=== PATIENT | male | born 1995 | race American Indian/Alaskan Native ===

== ENCOUNTER 2017-02-18 19:20 | Emergency (ER) | payer OTHER ==
[2017-02-18 20:23] VITALS: BP 144/80
--- NOTE | 2017-02-18 21:08 | XRay Report ---
FINAL REPORT PROCEDURE: XR KNEE 3V LT TECHNIQUE: LEFT knee radiographs, AP, lateral and sunrise views. CPT 71547 HISTORY: Left knee popped out COMPARISON: No prior studies are available for comparison. FINDINGS: Fracture (s) and/or Dislocation(s): None . Alignment: Normal . Joint space(s): Mild degree joint effusion is noted. Soft tissues: Normal . Bone mineralization: Normal . Foreign bodies: None . IMPRESSION: No acute fracture. Mild joint effusion.
[2017-02-18] MEDS ORDERED: MOTRIN PO ONE (21:43)
--- NOTE | 2017-02-19 00:51 | Emergency Department Report ---
Entered by WESLY RUSHING, acting as scribe for NEGRITA WILDE NP. ED Lower Extremity HPI - General Chief Complaint: Extremity Injury, Lower Stated Complaint: L KNEE PAIN Time Seen by Provider: 02/18/17 20:47 Source: patient Mode of arrival: Ambulatory Limitations: No Limitations - History of Present Illness Initial Comments: 21 y/o male with no significant PMHx c/o left knee pain that began today. Patient states that he was playing basketball and was trying to go up for a block, and his left knee subsequently popped out of place. Notes he popped his left knee back in place. Rates pain a 10/10 in severity. Denies numbness, tingling, LOC, head trauma/injury, paresthesias, fever, CP, SOB, head trauma, chills, nausea, and vomiting. Alleviated by nothing and aggravated by nothing. Applied ice with no relief. Patient reports not putting weight on left knee since the injury, because he is "afraid to". NKDA. LOPEZ Complaint: knee injury (left knee) -: This afternoon Injury: Knee: Left Type of Injury: other (dislocation) Place: other (basketball gym) Severity: severe Severity scale (0 -10): 10 Improves With: nothing (applied ice with no relief) Worsens With: nothing Context: other (playing basketball and jumped up for a block when left knee popped out of place) Associated Symptoms: snap/pop sensation (left knee), swelling, able to partially bear weight, ambulatory. denies: numbness, tingling - Related Data Previous Rx's Medication Instructions Recorded Last Taken Type Cyclobenzaprine [Flexeril 10 MG 10 mg PO TID PRN #15 tablet 09/26/15 Unknown Rx TAB] Ibuprofen [Motrin 800 MG tab] 800 mg PO Q8HR PRN #30 tablet 09/26/15 Unknown Rx Ibuprofen [Motrin 600 MG tab] 600 mg PO Q8H PRN #14 tablet 02/18/17 Unknown Rx Allergies Allergy/AdvReac Type Severity Reaction Status Date / Time No Known Allergies Allergy Unverified 09/26/15 02:31 ED Review of Systems Comment: All other systems reviewed and negative Constitutional: no symptoms reported. denies: chills, fever Eyes: denies: eye pain, eye discharge, vision change ENT: denies: ear pain, throat pain Respiratory: denies: cough, shortness of breath, wheezing Cardiovascular: denies: chest pain, palpitations Endocrine: no symptoms reported Gastrointestinal: denies: abdominal pain, nausea, vomiting, diarrhea Genitourinary: denies: urgency, dysuria Musculoskeletal: arthralgia (left knee pain). denies: back pain, joint swelling Skin: denies: rash, lesions Neurological: denies: headache, weakness, numbness, paresthesias, other ( tingling) Psychiatric: denies: anxiety, depression Hematological/Lymphatic: denies: easy bleeding, easy bruising ED Past Medical Hx - Past Medical History Previous Medical History?: No - Social History Smoking Status: Unknown if ever smoked - Medications Home Medications: Home Medications Medication Instructions Recorded Confirmed Last Taken Type Cyclobenzaprine [Flexeril 10 MG 10 mg PO TID PRN #15 tablet 09/26/15 Unknown Rx TAB] Ibuprofen [Motrin 800 MG tab] 800 mg PO Q8HR PRN #30 tablet 09/26/15 Unknown Rx Ibuprofen [Motrin 600 MG tab] 600 mg PO Q8H PRN #14 tablet 02/18/17 Unknown Rx ED Physical Exam - General Limitations: No Limitations General appearance: alert, in no apparent distress - Head Head exam: Present: atraumatic, normocephalic - Eye Eye exam: Present: normal appearance, PERRL, EOMI Pupils: Present: normal accommodation - ENT ENT exam: Present: normal exam, mucous membranes moist - Neck Neck exam: Present: normal inspection, full ROM. Absent: tenderness, lymphadenopathy - Respiratory Respiratory exam: Present: normal lung sounds bilaterally. Absent: respiratory distress, wheezes, rales, rhonchi, stridor, accessory muscle use, decreased breath sounds - Cardiovascular Cardiovascular Exam: Present: regular rate, normal rhythm, normal heart sounds. Absent: systolic murmur, diastolic murmur, rubs, gallop - GI/Abdominal GI/Abdominal exam: Present: soft, normal bowel sounds. Absent: distended - Extremities Exam Extremities exam: Present: full ROM (limited left knee flexion motion due to pain), tenderness (left knee tenderness), normal capillary refill. Absent: pedal edema, joint swelling, calf tenderness - Expanded Lower Extremity Exam Left Hip exam: Present: normal inspection, full ROM Upper Leg exam: Present: normal inspection, full ROM Knee exam: Present: full ROM (limited flexion motion due to left knee pain), tenderness (left knee tenderness present), full knee extension (with pain). Absent: swelling, abrasion, laceration, ecchymosis, deformity, crepidus, dislocation, erythema, effusion, pain w/ pronation/supination, posterior draw sign, pain/laxity with valgus, pain/laxity with varus Lower Leg exam: Present: normal inspection, full ROM Ankle exam: Present: normal inspection, full ROM Foot/Toe exam: Present: normal inspection, full ROM Neuro vascular tendon exam: Present: no vascular compromise. Absent: pulse deficit, abnormal cap refill, motor deficit, sensory deficit, tendon deficit, extremity cold to touch, pallor, abnormal 2-point discrimination, decreased fine /light touch Gait: Positive: observed and limited by pain (limited by left knee pain) - Back Exam Back exam: Present: normal inspection, full ROM - Neurological Exam Neurological exam: Present: alert, oriented X3 - Psychiatric Psychiatric exam: Present: normal affect, normal mood - Skin Skin exam: Present: warm, dry, intact. Absent: rash ED Course Vital Signs 02/18/17 20:00 Temperature 97.8 F Pulse Rate 70 Respiratory 20 Rate Blood Pressure 144/80 O2 Sat by Pulse 100 Oximetry ED Lower Extremity MDM - Medical Decision Making Ed course: This is a 21-year-old male that presents with left knee strain. 1- after my physical exam, patient received ibuprofen 600 mg by mouth in the ED. 2- x-ray has been obtained at triage area. Dictated by Dr. Castaneda. Impression; no acute fracture. Mild joint effusion. X-ray result has been notified to the patient. No coarse started by the patient. 3- patient was instructed to rest, elevate, compress, ice the extremity. 4- patient was also instructed to follow-up with orthopedic doctor in 3-5 days. 5- patient received ibuprofen 600 mg by mouth in time of discharge. 6-knee immobilizer has been applied to the left knee. Denies numbness or tingling. Denies to tight. Normal capillary refill. 7- at time time of discharge, the patient does not seem toxic or ill in appearance. No acute signs of distress noted. Patient agrees to discharge treatment plan of care. No further questions noted by the patient. ED Disposition Clinical Impression: Knee strain Qualifiers: Encounter type: initial encounter Laterality: left Qualified Code(s): S86.912A - Strain of unspecified muscle(s) and tendon(s) at lower leg level, left leg, initial encounter Disposition: DISCHARGED TO HOME OR SELFCARE Is pt being admited?: No Does the pt Need Aspirin: No Condition: Stable Instructions: Ibuprofen (By mouth), Knee Immobilizer (ED) Additional Instructions: Follow-up with your primary care doctor/orthopedic doctor in 3-5 days. Take ibuprofen as prescribed as needed. Prescriptions: Ibuprofen [Motrin 600 MG tab] 600 mg PO Q8H PRN #14 tablet PRN Reason: Pain Referrals: PRIMARY CAREMD [Primary Care Provider] - 3-[address] [facility] [Outside] - 3-5 Days [facility] [Outside] - 3-5 Days SYLVIA VITALE MD [Staff Physician] - 3-5 Days Forms: Work/School Release Form(ED) This documentation as recorded by the СЕРГЕЙ barcenas JASMINE,accurately reflects the service I personally performed and the decisions made by ,NEGRITA WILDE, STEPHANIA.
== END 2017-02-18 22:21 | disposition home or self-care (01) ==
LOC: ED 19:20
DX: S86.912A Strain of unspecified muscle(s) and tendon(s) at lower leg level, left leg, initial encounter (principal); X58.XXXA Exposure to other specified factors, initial encounter; Y93.67 Activity, basketball; Y99.8 Other external cause status; Y92.89 Other specified places as the place of occurrence of the external cause